=== PATIENT | male | born 1995 | race Caucasian/White ===

== ENCOUNTER 2018-08-12 09:27 | Emergency (ER) | payer OTHER ==
[~2018-08-12] VITALS: Ht 170.2 cm; Wt 82.6 kg
[2018-08-12 09:35] VITALS: BP 137/79; Ht 170.2 cm; Wt 82.6 kg
== END 2018-08-12 11:03 | disposition home or self-care (01) ==
LOC: ED 09:27
DX: F41.9 Anxiety disorder, unspecified (principal); R00.2 Palpitations
CPT/HCPCS: Q0092